=== PATIENT | male | born 2000 | race African-American/Black ===

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

== ENCOUNTER 2022-05-21 18:43 | Emergency (ER) | payer SELFPAY ==
[~2022-05-21] VITALS: Ht 175.3 cm; Wt 70.3 kg
[2022-05-21 18:46] VITALS: BP 117/76
[2022-05-21] MEDS ORDERED: CARB15DR61 OT (20:15)
[2022-05-21 20:39] VITALS: BP 117/76
--- NOTE | 2022-05-21 20:39 | NUR ---
Patient discharged with v/s stable. Written and verbal after care instructions given and explained. Patient alert, oriented and verbalized understanding of instructions. Ambulatory with steady gait. All questions addressed prior to discharge. ID band removed. Patient advised to follow up with PMD. Rx of CARBAMIDE PEROXIDE given. Patient educated on indication of medication including possible reaction and side effects. Opportunity to ask questions provided and answered.
== END 2022-05-21 20:39 | disposition home or self-care (01) ==
LOC: MED 18:43
DX: H61.23 Impacted cerumen, bilateral (principal)
CPT/HCPCS: 99282